=== PATIENT | female | born 1940 | race Caucasian/White ===

== ENCOUNTER 2018-07-29 16:56 | Inpatient (IN) | payer OTHER ==
[~2018-07-29] VITALS: Ht 170.2 cm; Wt 93.0 kg
[~2018-07-29 16:56] MED LIST: CALCIUM 500 +1 EAC5 PO; Docusate Sodium PO; GLUCOSAMINE &1 EAC1 PO; HYDROCODON-ACE1 EAC7 PO; Hydrocodone-Apap 5-325 Tablet PO; MELATONIN1 MG PO; Tylenol 325MG Caplet PO; ZIAC 5-6.25 MG1 EACH PO
--- NOTE | 2018-07-29 18:20 | NUR ---
PT IS ALERT AND ORIENTED X4. AND WAS ADMIT FROM [facility]ANCE. FOREIGN OBJECT IN UPPER INTESTINE. LUNGS ARE CLEAR. ABDOMEN IS SOFT AND BOWEL SOUNDS ACTIVE X4. NO PAIN NOTED. AFIB ON THE MONOTYPE CASTER. 2/2 PULSES. NO EDMA NOTED. PLEASANT WITH HISTORY PT SETTLED IN AND WILL CARRY OUT ORDERS OR NECESSARY CONSULTS NEEDED.
[2018-07-29 18:29] VITALS: BP 157/103
[2018-07-29 19:40] VITALS: BP 167/123
[2018-07-29] MEDS ORDERED: TOPROL XL25 MG PO (20:34)
[2018-07-29] MEDS ORDERED: ELIQUIS5 MG PO (20:35)
[2018-07-29] MEDS ORDERED: COZAAR 25 MG TA25 M1 PO (20:36)
[2018-07-29] MEDS ORDERED: PRILOSEC 20 MG20 MG PO (20:37)
[2018-07-29] MEDS ORDERED: IRON325 M1 PO (20:39)
[2018-07-29] MEDS ORDERED: GLUCOPHAGE500 MG PO (20:40)
[2018-07-29] MEDS ORDERED: HYDROCHLOROTH12.5 M1 PO (20:41)
[2018-07-29 23:27] VITALS: BP 153/91
[2018-07-30 04:47] VITALS: BP 14/98; BP 141/98
[2018-07-30 05:17] LABS: HEMATOCRIT 32.6 % (37.0-47.0); HEMOGLOBIN 10.7 gm/dL (12.0-15.0); MCH 26.6 pg (26.0-34.0); MCHC 32.6 g/dL (28.0-37.0); MCV 81.5 fL (80.0-100.0); RBC 4.01 mil/uL (4.20-5.00); RDW 15.8 % (10.5-14.5); WBC 4.6 thou/uL (4.0-11.0)
[2018-07-30 05:22] LABS: INR 1.1
[2018-07-30 05:30] LABS: CALCIUM 8.5 mg/dL (8.5-10.1); POTASSIUM 4.2 mmol/L (3.5-5.1)
--- NOTE | 2018-07-30 06:52 | NUR ---
ASSESSMENT DOCUMENTED.PT BEEN RESTING IN NO ACUTE DISTRESS.PT ADMITTED WITH CONSULTING FOR FOREIGN BODY IN SMALL INTERSTINES. A/OX4.DAUGHTER AT BEDSIDE.DR PRADEEP HORN WITH ORDERS ENTERED INSTRUCTED.GENERAL SURGERY AND CARDILOGY CONSULTED.PHYSICIANS TO SEE PT THIS AM.NPO AFTER MIDNOC.VSS.PAIN MEDS GIVEN FOR BACK PAIN.GOOD BOWELS SOUND,NO C/O N/V.UP WITH SBA TO BR.TOLERATING ACTIVITIES.SERVICE ESTABLISHMENT ATTENDANT ROUNDED ON PT.NO CONCERNS VOICED AT THIS TIME.NPO AFTER MIDNOC.WILL CONT TO MONITOR PER POC.
[2018-07-30 08:20] VITALS: BP 148/96
[2018-07-30 13:09] VITALS: BP 151/101
[2018-07-30 17:37] VITALS: BP 150/101
--- NOTE | 2018-07-30 18:17 | NUR ---
ASSUMED CARE AT SHIFT [place], ALERT AND ORIENTED X4. ASSESSMENT DOCUMNTED. DENIES ANY DISCOMFORT. AFIB ON THE MONITOR AND VSS. S/B DR TRACY, PATIENT ON REGULAR DIET, AND WILL CONTINUE WITH POC.
[2018-07-30 20:13] VITALS: BP 143/86
[2018-07-30 23:08] LABS: GLYCOHEMOGLOBIN (HGB A1C) 5.8 % (4.8-5.6)
[2018-07-31 04:42] VITALS: BP 147/96
--- NOTE | 2018-07-31 06:05 | NUR ---
ASSESSMENT DOCUMENTED.PT RESTING IN NO ACUTE DISTRESS.VSS.A/OX3.UP AD STEVIE TO BR.NO BM YET BUT PATIENT ADMITTED TO PASSING GAS.NO CONCERNS VOICED AT THIS TIME.WILL CONT TO MONITOR PER POC.
[2018-07-31 07:34] VITALS: BP 135/85
--- NOTE | 2018-07-31 08:34 | HC ---
[facility] [place] [id number] CONSULTATION Name: ARIANNE CASILLAS Room #: 207-P ADM IN M.R.#: [id number] Admission: 07/29/18 ������������������ Attend Phys: Osei Madera MD Discharge: ������������������ Date of : 42 Report #: [id number] THIS REPORT FOR: //name// CC: Osei Bacon DATE OF SERVICE: 07/30/2018 INDICATION: Atrial fibrillation. HISTORY OF PRESENT ILLNESS: This is a 78-year-old female with a history of paroxysmal atrial fibrillation, mitral regurgitation, diabetes mellitus and hypertension presenting with abdominal discomfort. She was originally admitted to [facility] with abdominal discomfort, found to have a metallic foreign body in her small bowel. During that time, she had issues with tachycardia. As per the patient's family's wishes, she was transferred to [facility] for further evaluation and treatment. Clinically, she denies any episodes of shortness of breath or chest pain. Initially, the AFib rates were above 100 beats per minute, improved with the change to atenolol. Overnight, the heart rates are in the 40 beats per minute and we will change to once a day dosing on beta harleen therapy. The patient denies any fever, abdominal pain or orthopnea presently. PAST MEDICAL HISTORY: Chronic atrial fibrillation treated with Eliquis and low dose metoprolol. Moderate mitral regurgitation. History of hypertension and diabetes. Stress test from 05/2017 was nonischemic with normal EF. MEDICATIONS: At home include Proventil inhaler, Eliquis 5 mg b.i.d., iron tablets, hydrochlorothiazide 25, losartan 50 mg daily, metformin, Lopressor 25 mg b.i.d. and omeprazole ALLERGIES: CODEINE. SOCIAL HISTORY: Denies tobacco use. FAMILY HISTORY: Negative for premature CAD. REVIEW OF SYSTEMS: A full 10-point review of systems was performed. Only the pertinent positives and negatives are described in the HPI. PHYSICAL EXAMINATION: VITAL SIGNS: Blood pressure is 148/80 and heart rate is 75 beats per minute. GENERAL APPEARANCE: An overweight female, in no acute distress. HEENT: Normocephalic and atraumatic. Oral mucosa is moist. NECK: Supple. LUNGS: Clear to auscultation. [address] [address] CONSULTATION Name: ARIANNE CASILLAS Room #: 207-P [facility] IN M.R.#: [id number] Admission: 07/29/18 ������������������ Attend Phys: Osei Madera MD Discharge: ������������������ Date of : 42 Report #: [id number] CARDIAC: Irregularly irregular, S1, S2 positive. ABDOMEN: Soft and nontender. EXTREMITIES: No cyanosis and trace edema. LABORATORY VALUES: White count 4.6, hemoglobin is 10.7 and platelet count 204. Creatinine is 1.0. ASSESSMENT AND PLAN: 1. Atrial fibrillation. We will continue with beta harleen therapy for rate control. Hold Eliquis for now, as she may require surgery. Use Lovenox b.i.d. 2. Hypertension, stable blood pressure, continue with medications including losartan. 3. Abdominal pain/metallic foreign body in the small intestine, await General Surgery consultation. 4. Mitral regurgitation, stable with no symptoms of congestion. 5. Diabetes mellitus, continue with oral hypoglycemics. ��������������������������������������������� <ELECTRONICALLY SIGNED> ���������������������������������������� By: Erick Connolly MD ��������������������������������������������� 07/31/18 0834 [id number] Erick Connolly MD /nt
[2018-07-31 10:41] VITALS: BP 138/89
--- NOTE | 2018-07-31 14:16 | NUR ---
ASSUMED CARE AT SHIFT CHANGE, ALERT AND ORIENTED X4. DENNIES ANY DISCOMFORT AOR CP. AFIB ON THE MONITOR. HAD BOWEL MOVEMENT TODAY. UP WALKING THE HALLWAYS WITH SB ASSIST. AND WILL CONTINUE WITH POC.
--- NOTE | 2018-07-31 14:32 | NUR ---
Met with patient who is A/Ox4. Chart reviewed and noted therapy eval for patient to be up ad goyo in room. Dtr at bedside. Patient resides with dtr in independent home all needs on one level. She has 4 steps to enter. She lives near [facility] her PCP is Dr Fox. 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 She is independent with adls and self care. Anticipate no needs at [place]. Dtr reports frustration that in her medical records it is noted that patient is an insulin dependent diabetic. She believes possibly generated at [place]. She requests release form for her medical records at [facility]. She plans to review to see if she can determine were generated to try to rectify. Release form to dtr. Casemgt following.
[2018-07-31 15:23] VITALS: BP 121/90
[2018-07-31 19:08] VITALS: BP 145/54
[2018-08-01 04:51] VITALS: BP 150/92
--- NOTE | 2018-08-01 05:05 | NUR ---
ASSUMED PT CARE AT 1900 WITH BEDSIDE REPORT TAKEN, PT IS ALERT AND ORIENTED AND SITTING IN CHAIR. NO SIGN OF DISTRESS NOTED IN PT. SCHEDULED MEDS ADMINISTERED TO PT, PT TOLERATED PO INTAKE. DENIES ANY NEEDS AT THIS TIME
[2018-08-01 07:29] VITALS: BP 153/105
[2018-08-01 10:59] VITALS: BP 153/105
[2018-08-01 12:52] VITALS: BP 137/83
[2018-08-01 15:30] VITALS: BP 139/93
[2018-08-01 15:52] VITALS: BP 139/93
--- NOTE | 2018-08-01 17:38 | NUR ---
ASSUMED CARE OF PT AT 0700. PT REPORTED NO PAIN AND WAS ALERT AND ORIENTED X4. PT REPORTED 1+ NON PITTING EDEMA IN THE FEET, FEET WERE ELEVATED TO RELIEVE EDEMA. PT WAS ABLE TO PASS BOWEL WITHOUT DIFFICULTY BUT FOREIGN OBJECT IN BOWEL WAS NOT FOUND. PT WAS ABLE TO DRINK 800 ML OF LIQUID DURING SHIFT WITHOUT SIGNS OF DIFFICULTY. PT MAINTAINED ATRIAL FIBRILATION WITH RATES IN NORMAL LIMITS. PT EXPERIENCED HYPERTENSION WHILE WORKING WITH PT, BUT RESOLVED AFTER SITTING. NO PAIN OR DIFFICULTY BREATHING WAS REPORTED. PT TO BE DISCHARGED TO HOME THIS PM.
--- NOTE | 2018-08-01 18:14 | NUR ---
I have reviewed the documentation by KEYON KIM from 699 to 1813 and I concur with it.
== END 2018-08-01 19:59 | disposition home or self-care (01) | DRG 394 ==
LOC: 2N 16:56
PROVIDERS: Nurse Practitioner Family; ADMIT Internal Medicine
DX: T18.3XXA Foreign body in small intestine, initial encounter (principal); N13.30 Unspecified hydronephrosis; X58.XXXA Exposure to other specified factors, initial encounter; I48.0 Paroxysmal atrial fibrillation; I10 Essential (primary) hypertension; M62.84 Sarcopenia; E83.42 Hypomagnesemia; I34.0 Nonrheumatic mitral (valve) insufficiency; K59.00 Constipation, unspecified; N83.9 Noninflammatory disorder of ovary, fallopian tube and broad ligament, unspecified; D50.9 Iron deficiency anemia, unspecified; I48.2 Chronic atrial fibrillation; K21.9 Gastro-esophageal reflux disease without esophagitis; E11.9 Type 2 diabetes mellitus without complications; Y92.89 Other specified places as the place of occurrence of the external cause; Y93.89 Activity, other specified; Y99.8 Other external cause status; Z79.899 Other long term (current) drug therapy; Z98.49 Cataract extraction status, unspecified eye; Z88.5 Allergy status to narcotic agent
CPT/HCPCS: 10081

== ENCOUNTER → 2020-03-14 | Outpatient (CLI) | payer OTHER ==
[~2020-03-14] MED LIST changes: +COZAAR 25 MG TA25 M1 PO; +ELIQUIS5 MG PO; +GLUCOPHAGE500 MG PO; +HYDROCHLOROTH12.5 M1 PO; +IRON325 M1 PO; +PRILOSEC 20 MG20 MG PO; +TOPROL XL25 MG PO
== END ==
LOC: RAD 08:23
DX: M47.816 Spondylosis without myelopathy or radiculopathy, lumbar region (principal); M41.85 Other forms of scoliosis, thoracolumbar region